=== PATIENT | male | born 1965 | race Asian ===

== ENCOUNTER 2025-03-02 09:54 | Emergency (ER) | payer BC, SELFPAY ==
[2025-03-02 09:55] VITALS: BP 137/100
[2025-03-02 10:28] VITALS: BMI 26.2
--- NOTE | 2025-03-02 10:55 | ED.GENMED ---
History of Present Illness
General
Chief Complaint: Musculo-Skeletal Complaint
Source: patient
Time Seen by Provider: 03/02/25 10:45
History of Present Illness
History of Present Illness:
59-year-old male with no significant past medical history presenting to the emergency department for evaluation of nontraumatic right foot pain that started 2 days ago after he had played tennis noting yesterday it started to be harder to ambulate
secondary to the pain. Patient states the pain is along the dorsum of the right foot, worse with dorsiflexion of the foot or with any pressure to the affected area. Did not take anything for the pain prior to arrival. Denies any previous history
of injury or surgery.
Past History
Past History
ED Past Medical History: None
ED Past Surgical History: None
Social History
Tobacco: Non-smoker
Alcohol: None
Drug: None
Personal:
Living: with family
Employment: Employed
Review of Systems
Review of Systems
All Other Systems: ROS reviewed and negative except as documented in HPI and ROS
Phy Exam
Physical Exam
Physical Exam:
GENERAL: Alert , in no apparent distress
EYE: conjunctiva clear
Head: Normocephalic atraumatic
NECK: Supple,
ENT: mmm.
LUNGS: no acute respiratory distress
NEUROLOGICAL: Alert and oriented
SKIN: Warm and dry, skin intact.
MUSCULOSKELETAL: well perfused. Easily palpable pedal and tibial pulse. Cap refill less than 2 seconds. Sensation grossly intact to light touch.
PSYCH: Normal and appropriate interaction.
Scores
Heart Failure Risk
Heart Failure Risk Score: Not Applicable
Heart Score for Chest Pain Patients
STEMI patient?: Not applicable
Withdrawal Assessment of Alcohol
Withdrawal Assessment Completed?: Not applicable
Course
Orders/Labs/Results
Orders:
Orders
03/02/25 09:58
Foot, Right 3 View [CR Foot - Right Min 3 Views] Urgent
Comment:
Reason For Exam: right foot pain after playing tennis
Vital Signs
Initial and Last Documented VS:
Initial Vital Signs
Temp Pulse Resp BP Pulse Ox
97.7 F 69 16 137/100 98
03/02/25 09:55 03/02/25 09:55 03/02/25 09:55 03/02/25 09:55 03/02/25 09:55
Last Documented Vital Signs
Temp Pulse Resp BP Pulse Ox
97.7 F 69 16 137/100 98
03/02/25 09:55 03/02/25 09:55 03/02/25 09:55 03/02/25 09:55 03/02/25 10:55
MDM/Problems Addressed
Differential Diagnosis Includes:
Plantar fasciitis
Tendinitis
Foot sprain
Fracture
Contusion
No symptoms to be suggestive of DVT
peripheral neuropathy
MDM/Problems Addressed:
59-year-old male presenting to the emergency department for evaluation of plantar right foot pain that developed after playing tennis 2 days ago. Pain worse when ambulating. No other or direct injuries sustained to the right foot. X-ray is
negative for any acute traumatic pathologies. Will place in a postoperative shoe for comfort. NSAIDs/Tylenol as needed for pain. Information for orthopedics provided. Patient otherwise stable for discharge home.
*Radiology
Radiology exam reviewed: preliminary read by ED provider (No acute fracture)
*Pulse Oximetry
SaO2: 98
Oxygen Mode of Delivery: Room air
Patient hypoxic: no
*Critical Care Note
Total Time (30-74mins, 75-104mins- exclusive of procedures): Not Applicable
ED Attending Note
-
Portions of this chart may have been created with voice recognition software.� Occasional wrong word or��sound alike� substitutions may have occurred due to the inherent limitations of voice recognition software.
Discharge Plan
Departure
Patient Disposition: Home (Routine Discharge)
Date of Disposition: 03/02/25
Time of Disposition: 10:55
Patient with high blood pressure during this ER visit?: Yes
Discharge Problem:
Foot pain, right
Instructions: Plantar fasciitis
Referrals:
NONE,* [Family Provider, Internal Medicine]
Bobby Spain MD [Active, Orthopedics]
Interventions
Interventions:
*Risk Screen - Suicide Last Done: 03/02/25 09:55
*General Assessment Last Done: 03/02/25 10:30
*Neglect/Abuse Screening Last Done: 03/02/25 09:55
*ED- Fall Risk Assessment Last Done: 03/02/25 10:30
*ED COVID-19 Vaccine History Last Done: 03/02/25 10:30
*Nursing Disposition Last Done: 03/02/25 11:27
ED-Musculoskeletal Assessment Last Done: 03/02/25 10:30
Discharge Date and Time
Discharge Date/Time: 03/02/25 11:27
Print Language: MARSHALLESE
--- NOTE | 2025-03-02 11:26 | EDRN ---
Pt refused cast shoe as it was harder than his shoes and created more pain on bottom of his foot.
== END 2025-03-02 11:27 | disposition home or self-care (01) ==
LOC: EMR 09:54
PROVIDERS: EMERGENCY PHYSICIAN Emergency Medicine
DX: M79.671 Pain in right foot (principal); Y93.73 Activity, racquet and hand sports
CPT/HCPCS: 99283; 73630